=== PATIENT | female | born 1970 | race Caucasian/White ===

== ENCOUNTER 2019-11-13 18:57 | Emergency (ER) | payer MEDICARE ==
[2019-11-13 19:03] VITALS: BP 131/82
--- NOTE | 2019-11-13 19:26 | ER Document Report ---
HPI - HPI Time Seen by Provider: 11/13/19 19:21 Onset: Other Quality of pain: No pain Pain Level: Denies Associated Symptoms: None Relieved by: Denies Recently seen / treated by doctor: No Notes: This 69-year-old female presented to the emergency room today stating that she has a history of seizures and is running out of Lamictal she has just returned from [place] about 7 days ago and was seeing a neurologist down there she is trying to get that orchestrated here in the [facility]. Has had 3 seizures yesterday this is not uncommon for her she has not had any today she is simply here requesting Lamictal. Past Medical History - General Information source: Patient - Social History Smoking Status: Current Every Day Smoker Cigarette use (# per day): No Chew tobacco use (# tins/day): No Smoking Education Provided: No Family History: None Patient has suicidal ideation: No Patient has homicidal ideation: No Vertical Provider Document - CONSTITUTIONAL Agree With Documented VS: Yes - INFECTION CONTROL TRAVEL OUTSIDE OF THE [place] IN LAST 30 DAYS: No - HEENT HEENT: Atraumatic, Conjuctival Injection, Normocephalic, PERRLA - NECK Neck: Normal Inspection - RESPIRATORY Respiratory: Breath Sounds Normal - CARDIOVASCULAR Pulses: Normal: Brachial, Radial, Carotid, Femoral - GI/ABDOMEN Gastrointestinal: Abdomen Soft, Abdomen Non-Tender Course - Re-evaluation Re-evalutation: 11/13/19 19:26 This is a 49-year-old female with no seizures in the last 24 hours did have 3 yesterday history of epilepsy taking Lamictal she is simply running out of Lamictal and requesting a prescription for such. Awake alert oriented no acute distress. - Vital Signs Vital signs: Temp Pulse Resp BP Pulse Ox 97.9 F 62 16 131/82 H 100 11/13/19 19:02 11/13/19 19:02 11/13/19 19:02 11/13/19 19:02 11/13/19 19:02 Discharge - Discharge Clinical Impression: Epilepsy Qualifiers: Epilepsy type: unspecified Intractability: not intractable Status epilepticus: without status epilepticus Qualified Code(s): G40.909 - Epilepsy, unspecified, not intractable, without status epilepticus Disposition: HOME, SELF-CARE Additional Instructions: Must follow-up with neurology as soon as possible patient is working through that. Prescriptions: Lamotrigine [Lamictal 100 mg Tablet] 200 mg PO BID #120 tablet
== END 2019-11-13 19:35 | disposition home or self-care (01) ==
LOC: ER 18:57
DX: G40.909 Epilepsy, unspecified, not intractable, without status epilepticus (principal); Z79.899 Other long term (current) drug therapy; Z76.0 Encounter for issue of repeat prescription; F17.200 Nicotine dependence, unspecified, uncomplicated
CPT/HCPCS: 99281